=== PATIENT | female | born 1995 | race African-American/Black ===

== ENCOUNTER 2016-07-24 02:17 | Emergency (ER) | payer BC ==
[~2016-07-24] VITALS: Ht 162.6 cm; Wt 64.0 kg
[~2016-07-24 02:17] MED LIST: ALBU8I INH; PRED20 PO; PRED50 PO
[2016-07-24 02:18] VITALS: BP 143/78; PULSE 66; RESP 15; TEMP 97.9; O2SAT 100
[2016-07-24] MEDS ORDERED: METR500T10 PO (03:07)
--- NOTE | 2016-07-24 03:10 | PD ---
HPI Chief Complaint: Respiratory Symptoms Time Seen by Provider: 02:58 Travel History International Travel<30 days: No Contact w/Intl Traveler<30days: No Traveled to known affect area: No History of Present Illness HPI This is a 21-year-old female with history of asthma who presents for evaluation of chest tightness. She reports that she started prescription for Flagyl a few days ago for bacterial vaginosis treatment. She is currently on her menstrual period and so this evening she took one tablet of naproxen and 400 mg of ibuprofen to help with menstrual cramps. She reports that this evening when lying down she developed a tightness across her chest. She became anxious and was concerned that this may be an adverse reaction from her medications and so she presents her now for evaluation. She describes a mild tightness across her chest with no aggravating or alleviating factors. She does endorse a slight nonproductive cough as well. Denies shortness of breath, calf swelling, abdominal pain nausea or vomiting, fevers, congestion, sore throat. She has no other complaints at this time. [facility] Past Medical History Asthma: Yes Diminished Hearing: No Respiratory: Yes (ASTHMA) Tetanus Vaccination: < 5 Years Influenza Vaccination: Yes ?: Not LMP: current Past Surgical History Other Surgery: Yes (surgery on nose) Social History Alcohol Use: Yes (occ) Tobacco Use: No Substance Use: No Allergies-Medications (Allergen,Severity, Reaction): Coded Allergies: No Known Allergies (Unverified , 07/24/16) Reported Meds & Prescriptions Reported Meds & Active Scripts Active Reported Metronidazole 500 Mg Tab 500 Mg PO BID Review of Systems Except as stated in HPI: all other systems reviewed are Neg Physical Exam Narrative GENERAL: Well-developed well-nourished female in no acute distress resting comfortably on hospital bed, vital signs reviewed SKIN: Warm and dry. HEAD: Atraumatic. Normocephalic. EYES: Pupils equal and round. No scleral icterus. No injection or drainage. ENT: No nasal bleeding or discharge. Mucous membranes pink and moist. NECK: Trachea midline. No JVD. CARDIOVASCULAR: Regular rate and rhythm. No murmur appreciated. RESPIRATORY: No accessory muscle use. Clear to auscultation. Breath sounds equal bilaterally. GASTROINTESTINAL: Abdomen soft, non-tender, nondistended. Hepatic and splenic margins not palpable. MUSCULOSKELETAL: No obvious deformities. No lower extremity edema, negative Homans NEUROLOGICAL: Awake and alert. No obvious cranial nerve deficits. Motor grossly within normal limits. Normal speech. PSYCHIATRIC: Appropriate mood and affect; insight and judgment normal. Data Data Last Documented VS Vital Signs Date Time Temp Pulse Resp B/P Pulse Ox O2 Delivery O2 Flow Rate FiO2 07/24/16 03:03 Room Air 07/24/16 02:18 97.9 66 15 143/78 100 Orders Chest, Single Ap (07/24/16 ) Electrocardiogram (07/24/16 ) MDM Medical Decision Making Medical Screen Exam Complete: Yes Emergency Medical Condition: Yes Medical Record Reviewed: Yes Interpretation(s) Chest x-ray normal EKG sinus rhythm Differential Diagnosis Anxiety, pleurisy, costochondritis, pneumothorax, hemothorax, pulmonary embolism , asthma exacerbation, bronchitis, myocarditis, pericarditis Narrative Course 21-year-old female with history of asthma presents after developing some chest tightness this evening after taking 400 mg of ibuprofen, naproxen as well as prescribed Flagyl for bacterial vaginosis. Physical examination is benign. After speaking with the patient to feel that her symptoms are likely anxiety related, she was concerned that the combination of medications might be causing an adverse reaction. I don't suspect a cardiac ischemic event as the etiology in this otherwise healthy 21-year-old female. Pulmonary embolism was considered in the differential however she is negative by PERC criteria. Plan is for chest x-ray, EKG. Both were unremarkable. The patient is stable for discharge. Diagnosis Primary Impression: Chest pain Qualified Code: R07.9 - Chest pain, unspecified type Additional Impression: Anxiety Additional Instructions: Follow-up with primary care physician. Return for any emergent medical conditions. Med/Other Pt SpecificInfo: No Change to Meds Disposition: 01 DISCHARGE HOME Condition: Stable Adalberto Palomino Jul 24, 2016 03:10
--- NOTE | 2016-07-24 04:00 | RADRPT ---
EXAM DATE/TIME: 07/24/2016 03:17 [facility] COMPARISON: No previous studies available for comparison. INDICATIONS : Pt having chest pain and tightness for couple hours. MEDICAL HISTORY : None. SURGICAL HISTORY : None. ENCOUNTER: Initial ACUITY: 1 day PAIN SCORE: 7/10 LOCATION: Bilateral chest FINDINGS: A single view of the chest demonstrates the lungs to be symmetrically aerated without evidence of mas s, infiltrate or effusion. No evidence of pneumothorax. The cardiomediastinal contours are unremark able. Osseous structures are intact. CONCLUSION: The lungs are clear. Castro Tejada MD on July 24, 2016 at 3:58 Board Certified Radiologist. This report was verified electronically.
--- NOTE | 2016-07-26 22:14 | EKG ---
Date Performed: 07/24/2016 Time Performed: 03:19:00 PTAGE: 21 years EKG: Sinus rhythm WITH SINUS ARRHYTHMIA NORMAL ECG NO PREVIOUS TRACING DOCTOR: Alexis Price Interpretating Date/Time 07/26/2016 22:14:29
== END 2016-07-24 04:09 | disposition home or self-care (01) ==
LOC: NEPB 02:17
DX: R07.9 Chest pain, unspecified (principal); N76.0 Acute vaginitis; F41.9 Anxiety disorder, unspecified; B96.89 Other specified bacterial agents as the cause of diseases classified elsewhere; J45.909 Unspecified asthma, uncomplicated
CPT/HCPCS: 71010; 93005

== ENCOUNTER 2016-08-04 19:06 | Emergency (ER) | payer BC ==
[~2016-08-04] VITALS: Ht 162.6 cm; Wt 70.0 kg
[~2016-08-04 19:06] MED LIST changes: -ALBU8I INH; +METR500T10 PO; -PRED20 PO; -PRED50 PO
[2016-08-04 19:08] VITALS: BP 137/72; PULSE 89; RESP 15; TEMP 98.6; O2SAT 98
--- NOTE | 2016-08-04 19:52 | PD ---
HPI Chief Complaint: GI Complaint Time Seen by Provider: 19:48 Travel History International Travel<30 days: No Contact w/Intl Traveler<30days: No Traveled to known affect area: No History of Present Illness HPI 21-year-old black female presents to emergency Department with complaints of constipation. The patient states that she normally stools once a week. She has a history of chronic constipation. She states she last moved her bowels 9 days ago. She states that when she normally feels this when she goes to the hospital and they gave her a suppository or an enema which relieved her constipation. She has tried multiple sbrd-zyw-aexuqvl medications in the past. She states that MiraLAX does not work for her. She denies any fever chills. No nausea vomiting. No dysuria or frequency. No vaginal complaints. [facility] Past Medical History Narrative Medical Asthma, chronic constipation Asthma: Yes Diminished Hearing: No Respiratory: Yes Tetanus Vaccination: < 5 Years ?: Not LMP: 07/25/2016 Past Surgical History Narrative Surgical Sinus surgery Other Surgery: Yes (surgery on nose) Social History Alcohol Use: Yes ([facility]) Tobacco Use: No Substance Use: No Allergies-Medications (Allergen,Severity, Reaction): Coded Allergies: No Known Allergies (Unverified , 08/04/16) Reported Meds & Prescriptions Reported Meds & Active Scripts Active Review of Systems Except as stated in HPI: all other systems reviewed are Neg Physical Exam Narrative GENERAL: Well-developed, well-nourished in no acute distress. Nontoxic appearing. HEAD: Normocephalic, atraumatic. EYES: Pupils equal round and reactive. Extraocular motions intact. No scleral icterus. No injection or drainage. ENT: TMs clear without erythema. The external auditory canals clear. Nose: clear . Posterior pharynx is pink and moist. No tonsillar edema or exudate. Uvula midline. Airway patent. NECK: Trachea midline.Supple, nontender, moves head freely. No central bony tenderness or spasm. CARDIOVASCULAR: Regular rate and rhythm without murmurs, gallops, or rubs. RESPIRATORY: Clear to auscultation. Breath sounds equal bilaterally. No wheezes , rales, or rhonchi. GASTROINTESTINAL: Abdomen soft, non-tender, nondistended. No hepato-splenomegaly , or palpable masses. No guarding. EXTREMITIES: No clubbing, cyanosis, or edema. No joint tenderness, effusion, or edema noted. BACK: Nontender without deformity or crepitance. No flank tenderness. Data Data Last Documented VS Vital Signs Date Time Temp Pulse Resp B/P Pulse Ox O2 Delivery O2 Flow Rate FiO2 08/04/16 19:08 98.6 89 15 137/72 98 Room Air Orders Magnesium Citrate Liq (Citroma Liq) (08/04/16 20:00) Polyethylene Glycol (Miralax) (08/04/16 20:00) Bisacodyl Supp (Dulcolax Supp) (08/04/16 20:00) [facility] Medical Decision Making Medical Screen Exam Complete: Yes Emergency Medical Condition: Yes Medical Record Reviewed: Yes Differential Diagnosis Differential diagnoses: Constipation, obstipation, dehydration Narrative Course The patient is given a bottle of magnesium citrate, 34 g of MiraLAX orally. She is also given a Dulcolax suppository. This is constipation Diagnosis Primary Impression: Constipation Patient Instructions: General Instructions Additional Instructions: Rest. Increase fluids. One Of MiraLAX daily. Follow-up with a primary care doctor or a GI specialist 3-7 days. Return to the ER if any problems. Med/Other Pt SpecificInfo: No Meds Exist/No RX given Disposition: 01 DISCHARGE HOME Condition: Stable Cameron Fuentes Aug 04, 2016 19:51
[2016-08-04] MEDS ORDERED: MAGNESIUM CITRATE SOLN 300 ML BTL PO ONE (20:00)
[2016-08-04] MEDS ORDERED: BISACODYL 10 MG SUPP RECTAL ONE (20:00)
[2016-08-04] MEDS ORDERED: POLYETHYLENE GLYCOL 17 GM PKG PO ONE (20:00)
== END 2016-08-04 21:34 | disposition home or self-care (01) ==
LOC: NEPB 19:06
DX: K59.00 Constipation, unspecified (principal)
CPT/HCPCS: 99282

== ENCOUNTER 2017-07-10 19:44 | Emergency (ER) | payer BC, OTHER ==
[~2017-07-10] VITALS: Ht 157.5 cm; Wt 58.0 kg
[2017-07-10 19:45] VITALS: BP 159/88; PULSE 100; RESP 20; TEMP 98; O2SAT 98
--- NOTE | 2017-07-10 20:14 | PD ---
HPI Chief Complaint: GI Complaint Time Seen by Provider: 20:01 Travel History International Travel<30 days: No Contact w/Intl Traveler<30days: No Traveled to known affect area: No History of Present Illness HPI This is a 22-year-old female with history of chronic idiopathic constipation. She presents for evaluation of constipation. She reports that typically she is able to have bowel movements approximately 3 times a week with tptg-jgf-mzdjyzm stool softeners and laxatives on a regular basis. She reports over the past week she has been constipated with no bowel movement. She has been having some rectal pain associated with this, worse when sitting. Most recently this week she has tried Colace, magnesium citrate, kwth-axq-ixjqyhm laxative tea which typically work however her symptoms persisted which prompted evaluation. She reports that in the past she has any gas or neurologist for evaluation as had 2 colonoscopies which revealed no abnormality. She denies abdominal pain, nausea , vomiting. She has no other complaints. PFSH Past Medical History Asthma: Yes Diminished Hearing: No Respiratory: Yes Immunizations Current: Yes Tetanus Vaccination: Unknown Influenza Vaccination: Yes ?: Unknown LMP: 06/17/17 Past Surgical History Other Surgery: Yes (surgery on nose) Social History Alcohol Use: Yes (occ) Tobacco Use: No Substance Use: No Allergies-Medications (Allergen,Severity, Reaction): Coded Allergies: No Known Allergies (Unverified Adverse Reaction, Unknown, 07/10/17) Reported Meds & Prescriptions Reported Meds & Active Scripts Active Golytely 236 gm (Polyethylene Glycol/Electrolytes) 4,000 Ml Soln 4,000 Ml PO ONCE Review of Systems Except as stated in HPI: all other systems reviewed are Neg Physical Exam Narrative Examined in the presence of a female nurse GENERAL: Well-developed well-nourished female in no acute distress SKIN: Warm and dry. HEAD: Atraumatic. Normocephalic. EYES: Pupils equal and round. No scleral icterus. No injection or drainage. ENT: No nasal bleeding or discharge. Mucous membranes pink and moist. NECK: Trachea midline. No JVD. CARDIOVASCULAR: Regular rate and rhythm. No murmur appreciated. RESPIRATORY: No accessory muscle use. Clear to auscultation. Breath sounds equal bilaterally. GASTROINTESTINAL: Abdomen soft, non-tender, nondistended. Hepatic and splenic margins not palpable. Digital Rectal examination reveals no evidence of external hemorrhoid. There is stool in the rectal vault. MUSCULOSKELETAL: No obvious deformities. No clubbing. No cyanosis. No edema. NEUROLOGICAL: Awake and alert. No obvious cranial nerve deficits. Motor grossly within normal limits. Normal speech. PSYCHIATRIC: Appropriate mood and affect; insight and judgment normal. Data Data Last Documented VS Vital Signs Date Time Temp Pulse Resp B/P (MAP) Pulse Ox O2 Delivery O2 Flow Rate FiO2 07/10/17 20:55 17 07/10/17 19:45 98.0 100 159/88 (111) 98 Room Air Orders Orders Fleets Enema PRN (07/10/17 20:12) Ed Urine Pregnancytest Poc (07/10/17 20:14) Fleets Enema (Adult) (Fleets Enema (Adul (07/10/17 20:30) Ed Discharge Order (07/10/17 21:28) [facility] Medical Decision Making Medical Screen Exam Complete: Yes Emergency Medical Condition: Yes Medical Record Reviewed: Yes Differential Diagnosis Chronic idiopathic constipation, fecal impaction, obstruction Narrative Course 22-year-old female with long-standing history of chronic idiopathic constipation presents for evaluation of constipation for the past week, rectal pain. Her abdomen soft and nontender. Her rectal examination reveals stool in the rectal vault. The patient has tried cqqk-yoc-uqsrvbm laxatives and stool softeners with no relief. She is agreeable to fleets enema. On reexamination the patient was able to have a bowel movement but she is requesting GoLYTELY for complete bowel cleansing. She will be discharged with a prescription. Discussed the importance of outpatient follow-up for further treatment of her chronic constipation. She is agreeable. Diagnosis Primary Impression: Constipation Additional Instructions: Medication as prescribed and increase fluid and fiber intake. Follow-up with primary care physician and gastroenterology and return for any acutely new or worsening symptoms. Med/Other Pt SpecificInfo: Prescription(s) given Scripts Peg-Electrolytes (Golytely 236 gm) 4,000 Ml Soln 4000 ML PO ONCE for Bowel Cleanser, #1 CONTAINER 0 Refills Prov: Mary Jo Ortiz MD 07/10/17 Disposition: 01 DISCHARGE HOME Condition: Stable Adalberto Palomino Jul 10, 2017 20:14
[2017-07-10] MEDS ORDERED: SOD PHOSPHATE/SOD BIPHOSPHATE (ADULT) ENEMA 133ML RECTAL ONE (20:30)
[2017-07-10] MEDS ORDERED: COLY4000S PO (21:19)
== END 2017-07-10 21:51 | disposition home or self-care (01) ==
LOC: NEPE 19:44
DX: K59.00 Constipation, unspecified (principal); K62.89 Other specified diseases of anus and rectum; J45.909 Unspecified asthma, uncomplicated
CPT/HCPCS: 84703; 99283

== ENCOUNTER 2017-10-27 07:59 | Emergency (ER) | payer SELFPAY ==
[~2017-10-27 07:59] MED LIST changes: +COLY4000S PO; -METR500T10 PO
[2017-10-27 08:12] VITALS: BP 134/76; PULSE 74; RESP 20; TEMP 98.2; O2SAT 100
[2017-10-27] MEDS ORDERED: VENTAER INH (09:22)
[2017-10-27] MEDS ORDERED: PRED-503 PO (09:46)
[2017-10-27] MEDS ORDERED: OCEA0.653 EACH NARE (09:46)
[2017-10-27] MEDS ORDERED: AZIT500T2 PO (09:46)
--- NOTE | 2017-10-27 09:46 | PD ---
HPI Chief Complaint: Cold / Flu Symptoms Time Seen by Provider: 09:21 Travel History International Travel<30 days: No Contact w/Intl Traveler<30days: No Traveled to known affect area: No History of Present Illness HPI 22-year-old female presents to the emergency department with complaint of cold/ flu symptoms 2 weeks. She was seen twice at [facility] last week and was tested for the flu which was negative. When she was seen again on Tuesday she was having an asthma exacerbation and she was given steroids, which she has not filled or started taking. She has been using her albuterol inhaler with good relief of symptoms. Reports chest tightness. She denies chest pain, shortness of breath, wheezing. Denies fever, vomiting. Reports nasal congestion, headache, sinus pressure. Has been using fxue-aqh-tsujptj cold and flu medications for symptom management without good relief. No known aggravating or relieving factors. Symptoms are mild in severity. No primary care provider. No known allergies. History of asthma. Has no other medical complaints. No other modifying factors or associated signs and symptoms. PFSH Past Medical History Asthma: Yes Diminished Hearing: No Respiratory: Yes Immunizations Current: Yes ?: Not Past Surgical History Other Surgery: Yes (surgery on nose) Social History Alcohol Use: Yes ([facility]) Tobacco Use: No Substance Use: No Allergies-Medications (Allergen,Severity, Reaction): Coded Allergies: No Known Allergies (Unverified Adverse Reaction, Unknown, 10/27/17) Reported Meds & Prescriptions Reported Meds & Active Scripts Active Gaston Nasal [place] (Sodium Chloride) 0.65% [place] 2 [place] EACH NARE DIRECTED PRN Deltasone (Prednisone) 20 Mg Tab 40 Mg PO DAILY 5 Days Azithromycin 500 Mg Tab 500 Mg PO DAILY Reported Ventolin Hfa 18 GM Inh (Albuterol Sulfate) 90 Mcg/Act Aer 1 Puff INH Q4H PRN Review of Systems Except as stated in HPI: all other systems reviewed are Neg Physical Exam Narrative GENERAL: Well-nourished, well-developed black female patient, in no acute distress SKIN: Warm and dry. No rash. HEAD: Atraumatic. Normocephalic. Frontal and maxillary sinus tenderness on palpation. EYES: Pupils equal and round at 3 mm with brisk reaction. No scleral icterus. No injection or drainage. PERRLA. ENT: Mucosa pink and moist. Oropharynx without erythema, exudates, tonsillar edema.. No uvular edema. No uvular, palatal, or tonsillar deviation. Airway patent. Nasal congestion noted. EARS: Bilateral pinnae and external canals appear within normal limits. Bilateral tympanic membranes without erythema, dullness or perforation. NECK: Trachea midline. No lymphadenopathy. CARDIOVASCULAR: Regular rate and rhythm. No murmur appreciated. RESPIRATORY: No accessory muscle use. Clear to auscultation. Breath sounds equal bilaterally. GASTROINTESTINAL: Abdomen soft, non-tender, nondistended. Hepatic and splenic margins not palpable. Bowel sounds are active 4 quadrants. MUSCULOSKELETAL: No obvious deformities. No clubbing. No cyanosis. No edema. NEUROLOGICAL: Awake and alert. Oriented 3. No obvious cranial nerve deficits. Motor grossly within normal limits. Normal speech. Moves all extremities. 5/5 strength to all extremities. PSYCHIATRIC: Appropriate mood and affect; insight and judgment normal. Data Data Last Documented VS Vital Signs Date Time Temp Pulse Resp B/P (MAP) Pulse Ox O2 Delivery O2 Flow Rate FiO2 10/27/17 08:12 98.2 74 20 134/76 (95) 100 Orders Orders Ed Discharge Order (10/27/17 09:46) MDM Medical Decision Making Medical Screen Exam Complete: Yes Emergency Medical Condition: Yes Medical Record Reviewed: Yes Differential Diagnosis Sinusitis, URI, asthma exacerbation Narrative Course 22-year-old female with upper respiratory infection. She has history of asthma and was seen at [facility] on Tuesday for asthma exacerbation. Her lungs are clear and equal throughout on my exam. She is in no acute distress. No retractions or tachypnea. She reports chest tightness. I did offer the patient a breathing treatment prior to leaving, secondary to report of chest tightness and she declined. Patient has a prescription for oral steroids from previous hospital, but is requesting a new prescription so she does not have to drive home to get it. I will prescribe antibiotics secondary to length of illness. Azithromycin, Deltasone, nasal spray prescribed for home. Instructed patient to follow up with primary care provider. Patient verbalizes understanding and agreement with treatment plan. Patient is medically cleared and stable for discharge. Discussed reasons to return to the emergency department. Patient agrees with treatment plan. The patients vital signs are stable and the patient is stable for outpatient follow-up and treatment. Patient discharged home, stable and in no acute distress. Diagnosis Primary Impression: Upper respiratory infection Qualified Codes: J06.9 - Acute upper respiratory infection, unspecified Referrals: [facility] Primary Care Physician Patient Instructions: General Instructions, Safe Use of Cough and Cold Medicines (ED), Upper Respiratory Infection (ED) Departure Forms: Tests/Procedures, Work Release Enter return to work date: Oct 29, 2017 Additional Instructions: Use Albuterol inhaler as prescribed Take oral steroids as prescribed and complete full course Cspr-srk-ndtjiaq decongestants or antihistamines as directed and as needed for symptom management Your cough can last 4-6 weeks Drink plenty of fluids to prevent dehydration Use hot air humidifier to decrease cough exacerbation Turn off ceiling fans and sleep with head of bed elevated Avoid triggers such as second hand smoke, dust, known allergens Follow-up with your primary care provider Return to the emergency department immediately with worsening of symptoms Med/Other Pt SpecificInfo: Prescription(s) given Scripts Saline Nasal (Gaston Nasal [place]) 0.65% [place] 2 SPRAY EACH NARE DIRECTED Y for NASAL CONGESTION, #1 BOTTLE 0 Refills Prov: Corin Ortega 10/27/17 Prednisone (Deltasone) 20 Mg Tab 40 MG PO DAILY for 5 Days, #10 TAB 0 Refills Prov: Corin Ortega 10/27/17 Azithromycin (Azithromycin) 500 Mg Tab 500 MG PO DAILY for Infection, #5 TAB 0 Refills Prov: Corin Ortega 10/27/17 Disposition: 01 DISCHARGE HOME Condition: Stable Corin Ortega Oct 27, 2017 09:46
== END 2017-10-27 09:59 | disposition home or self-care (01) ==
LOC: NEPK 07:59
DX: J06.9 Acute upper respiratory infection, unspecified (principal); J45.909 Unspecified asthma, uncomplicated
CPT/HCPCS: 99283

== ENCOUNTER 2017-11-02 23:50 | Emergency (ER) | payer SELFPAY ==
[~2017-11-02 23:50] MED LIST changes: +AZIT500T2 PO; -COLY4000S PO; +OCEA0.653 EACH NARE; +PRED-503 PO; +VENTAER INH
[2017-11-02 23:52] VITALS: BP 140/71; PULSE 70; RESP 19; TEMP 97.3; O2SAT 100
[2017-11-03] MEDS ORDERED: SODIUM CHLORIDE 0.9% FLUSH 10 ML FLUSH IVF PRN (00:15)
[2017-11-03] MEDS ORDERED: RESP: ALBUTEROL 2.5 MG/IPRATROPIUM 0.5 MG NEB (SCH) INH ONE (00:15)
[2017-11-03 00:19] VITALS: RESP 18
[2017-11-03 00:40] LABS: AUTOMATED NEUTROPHIL # 3.6 TH/MM3 (1.8-7.7); BASOPHIL # 0.1 TH/MM3 (0-0.2); BASOPHIL % 0.7 % (0.0-2.0); EOSINOPHIL # 0.1 TH/MM3 (0-0.4); EOSINOPHIL % 1.5 % (0.0-4.0); HEMATOCRIT 34.3 % (35.0-46.0); LYMPH % 50.1 % (9.0-44.0); LYMPHOCYTE # 4.3 TH/MM3 (1.0-4.8); MEAN CORPUSCULAR HEMOGLOBIN 28.6 PG (27.0-34.0); MEAN CORPUSCULAR HGB CONC 34.8 % (32.0-36.0); MONO % 6.5 % (0.0-8.0); MONOCYTE # 0.6 TH/MM3 (0-0.9); NEUT % 41.2 % (16.0-70.0); PLATELET COUNT 246 TH/MM3 (150-450); RED BLOOD COUNT 4.19 MIL/MM3 (4.00-5.30); RED CELL DISTRIBUTION WIDTH 12.7 % (11.6-17.2); WHITE BLOOD COUNT 8.6 TH/MM3 (4.0-11.0)
--- NOTE | 2017-11-03 00:47 | RADRPT ---
EXAM DATE/TIME: 11/03/2017 00:26 [facility] COMPARISON: No previous studies available for comparison. INDICATIONS : Cough and congestion. MEDICAL HISTORY : Asthma SURGICAL HISTORY : None. ENCOUNTER: Initial ACUITY: 3 weeks PAIN SCORE: 0/10 LOCATION: Bilateral chest FINDINGS: PA and lateral views of the chest demonstrate the lungs to be symmetrically aerated without evidence of mass, infiltrate or effusion. The cardiomediastinal contours are unremarkable. Osseous structure s are intact. CONCLUSION: No acute cardiopulmonary process. Christ Michele MD on November 03, 2017 at 0:46 Board Certified Radiologist. This report was verified electronically.
[2017-11-03 01:04] LABS: ALBUMIN 3.6 GM/DL (3.4-5.0); ALKALINE PHOSPHATASE 49 U/L (45-117); ALT (GPT) 17 U/L (10-53); AST (GOT) 18 U/L (15-37); BICARBONATE 25.8 MEQ/L (21.0-32.0); BLOOD UREA NITROGEN 10 MG/DL (7-18); CALCIUM 8.5 MG/DL (8.5-10.1); CHLORIDE 108 MEQ/L (98-107); CREATININE 0.68 MG/DL (0.50-1.00); GLOMERULAR FILTRATION RATE 129 ML/MIN (>89); GLUCOSE,RANDOM 95 MG/DL (74-106); SODIUM (NA) 140 MEQ/L (136-145); TOTAL BILIRUBIN ADULT 0.2 MG/DL (0.2-1.0); TOTAL PROTEIN 6.8 GM/DL (6.4-8.2)
--- NOTE | 2017-11-03 01:23 | PD ---
HPI Chief Complaint: Respiratory Symptoms Time Seen by Provider: 00:10 Travel History International Travel<30 days: No Contact w/Intl Traveler<30days: No Traveled to known affect area: No History of Present Illness HPI Patient presents to the emergency department complaining of shortness of breath for 1-1/2 hours. Last breathing treatment was 1-1/2 weeks ago patient has run out. States that she recently was diagnosed with upper respiratory infection and finished her antibiotics and prednisone on Tuesday. He is reporting a cough , chills, but denies fever, nausea, or vomiting. 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 PFSH Past Medical History Asthma: Yes Diminished Hearing: No Respiratory: Yes Immunizations Current: Yes Tetanus Vaccination: Unknown Influenza Vaccination: Yes ?: Not LMP: 10/2017 Past Surgical History Other Surgery: Yes (surgery on nose) Social History Alcohol Use: Yes ([facility]) Tobacco Use: No Substance Use: No Allergies-Medications (Allergen,Severity, Reaction): Coded Allergies: No Known Allergies (Unverified Adverse Reaction, Unknown, 11/03/17) Reported Meds & Prescriptions Reported Meds & Active Scripts Active Albuterol Neb (Albuterol Sulfate) 2.5 Mg/0.5 Ml Neb 2.5 Mg NEB Q6HR NEB 30 Days Note: The Albuterol Sulfate Inhalation Solution is concentrated and must be diluted. Read complete instructions carefully before using. [place] Nasal Keller (Sodium Chloride) 0.65% Keller 2 Keller EACH NARE DIRECTED PRN Deltasone (Prednisone) 20 Mg Tab 40 Mg PO DAILY 5 Days Azithromycin 500 Mg Tab 500 Mg PO DAILY Reported Ventolin Hfa 18 GM Inh (Albuterol Sulfate) 90 Mcg/Act Aer 1 Puff INH Q4H PRN Review of Systems Except as stated in HPI: all other systems reviewed are Neg Physical Exam Narrative GENERAL: No acute distress. SKIN: Focused skin assessment warm/dry. HEAD: Atraumatic. Normocephalic. EYES: Extraocular muscles are intact. No scleral icterus. No injection or drainage. ENT: No nasal bleeding or discharge. Mucous membranes pink and moist. NECK: Trachea midline. No JVD. CARDIOVASCULAR: Regular rate and rhythm. No murmur appreciated. RESPIRATORY: No accessory muscle use. Clear to auscultation. Breath sounds equal bilaterally. GASTROINTESTINAL: Abdomen soft, non-tender, nondistended. Hepatic and splenic margins not palpable. MUSCULOSKELETAL: No obvious deformities. No clubbing. No cyanosis. No edema. NEUROLOGICAL: Awake and alert. No obvious cranial nerve deficits. Motor grossly within normal limits. Normal speech. PSYCHIATRIC: Appropriate mood and affect; insight and judgment normal. Data Data Last Documented VS Vital Signs Date Time Temp Pulse Resp B/P (MAP) Pulse Ox O2 Delivery O2 Flow Rate FiO2 11/03/17 00:19 18 11/03/17 00:19 100 Room Air 11/02/17 23:52 97.3 70 140/71 (94) Orders Orders Complete Blood Count With Diff (11/03/17 00:14) Comprehensive Metabolic Panel (11/03/17 00:14) Chest, Pa & Lat (11/03/17 00:14) Ecg Monitoring (11/03/17 00:14) Iv Access Insert/Monitor (11/03/17 00:14) Oximetry (11/03/17 00:14) Oxygen Administration (11/03/17 00:14) Albuterol-Ipratropium Neb (Duoneb Neb) (11/03/17 00:15) Sodium Chloride 0.9% Flush (Ns Flush) (11/03/17 00:15) Labs Laboratory Tests Test 11/03/17 00:30 White Blood Count 8.6 TH/MM3 Red Blood Count 4.19 MIL/MM3 Hemoglobin 12.0 GM/DL Hematocrit 34.3 % Mean Corpuscular Volume 82.0 FL Mean Corpuscular Hemoglobin 28.6 PG Mean Corpuscular Hemoglobin Concent 34.8 % Red Cell Distribution Width 12.7 % Platelet Count 246 TH/MM3 Mean Platelet Volume 10.0 FL Neutrophils (%) (Auto) 41.2 % Lymphocytes (%) (Auto) 50.1 % Monocytes (%) (Auto) 6.5 % Eosinophils (%) (Auto) 1.5 % Basophils (%) (Auto) 0.7 % Neutrophils # (Auto) 3.6 TH/MM3 Lymphocytes # (Auto) 4.3 TH/MM3 Monocytes # (Auto) 0.6 TH/MM3 Eosinophils # (Auto) 0.1 TH/MM3 Basophils # (Auto) 0.1 TH/MM3 CBC Comment DIFF FINAL Differential Comment Blood Urea Nitrogen 10 MG/DL Creatinine 0.68 MG/DL Random Glucose 95 MG/DL Total Protein 6.8 GM/DL Albumin 3.6 GM/DL Calcium Level 8.5 MG/DL Alkaline Phosphatase 49 U/L Aspartate Amino Transf (AST/SGOT) 18 U/L Alanine Aminotransferase (ALT/SGPT) 17 U/L Total Bilirubin 0.2 MG/DL Sodium Level 140 MEQ/L Potassium Level 3.6 MEQ/L Chloride Level 108 MEQ/L Carbon Dioxide Level 25.8 MEQ/L Anion Gap 6 MEQ/L Estimat Glomerular Filtration Rate 129 ML/MIN [facility] Medical Decision Making Medical Screen Exam Complete: Yes Emergency Medical Condition: Yes Interpretation(s) Labs: cbc-> slight decrease in hematocrit, normal wbc count Last Impressions Chest X-Ray 11/03/17 0014 Signed Impressions: Service Date/Time: November 00:26 - CONCLUSION: No acute cardiopulmonary process. Christ Michele MD Differential Diagnosis Viral illness, bronchitis, pneumonia, asthma exacerbation Narrative Course Patient presents to the emergency department complaining of shortness of breath and cough. Will check chest x-ray, CBC, and chemistry. Patient also will receive a DuoNeb reassessment. Of note, urine test negative in ER. 0122: Patient states DuoNeb has made her feel a little bit jittery, but she reports breathing better. Will DC with albuterol neb medication as patient states that hers has at home. She has been given referral to [facility] and she does not have a primary care doctor. Diagnosis Primary Impression: Upper respiratory infection Qualified Codes: J06.9 - Acute upper respiratory infection, unspecified Referrals: [facility] Patient Instructions: Acute Bronchitis (ED), General Instructions Additional Instructions: Return to ER for fever, vomiting, chest pain, or for any new/worrisome/ worsening symptoms. Med/Other Pt SpecificInfo: Prescription(s) given Scripts Albuterol Neb (Albuterol Neb) 2.5 Mg/0.5 Ml Neb 2.5 MG NEB Q6HR NEB for wheezing for 30 Days, #1 BOX Note: The Albuterol Sulfate Inhalation Solution is concentrated and must be diluted. Read complete instructions carefully before using. Prov: Yana Ruiz MD 11/03/17 Disposition: DISCHARGE HOME Condition: Stable Yana Ruiz MD November 03, 2017 01:23
[2017-11-03] MEDS ORDERED: ALBU.5I NEB (01:32)
== END 2017-11-03 02:08 | disposition home or self-care (01) ==
LOC: NEPC 23:50
DX: J06.9 Acute upper respiratory infection, unspecified (principal); J45.909 Unspecified asthma, uncomplicated
CPT/HCPCS: 71046; 80053; 85025; 94664; 99284